=== PATIENT | male | born 1970 | race Caucasian/White ===

== ENCOUNTER 2017-02-21 17:05 | Inpatient (IN) | payer MEDICARE ==
[~2017-02-21] VITALS: Ht 172.7 cm; Wt 79.4 kg
[~2017-02-21 17:05] MED LIST: CIPR500T4 PO; [UNRECOGNIZED DRUG - CODE] IM/IV/SUBQ
[2017-02-21 17:09] VITALS: BP 150/97
[2017-02-21] MEDS ORDERED: KETOROLAC 30 MG/ML VIAL IVP ONE (17:20)
[2017-02-21] MEDS ORDERED: NACL 0.9% 1,000 ML IV ONE (17:20)
--- NOTE | 2017-02-21 17:23 | NUR ---
PT TO BED 8
[2017-02-21 17:44] LABS: BASOPHILS # (AUTO) 0.1 K/uL (0.00-0.22); EOSINOPHILS # (AUTO) 0.1 K/uL (0-0.4); WHITE BLOOD COUNT (AUTO) 4.5 K/uL (4.8-10.8)
--- NOTE | 2017-02-21 17:45 | NUR ---
Patient back from CT via wheelchair per tech.
[2017-02-21 17:54] LABS: BASOPHILS % (AUTO) 2.3 % (0.0-2.0); EOSINOPHILS % (AUTO) 1.8 % (0.0-4.0); HEMATOCRIT 45.1 % (36-52); LYMPHOCYTES # (AUTO) 0.4 K/uL (2.0-11.5); LYMPHOCYTES % (AUTO) 8.6 % (20.5-51.1); MEAN CORPUSCULAR HEMOGLOBIN 25 pg (27-31); MEAN CORPUSCULAR HGB CONC 31 g/dL (33-37); MEAN CORPUSCULAR VOLUME 81 fL (80-94); MONOCYTES # (AUTO) 0.5 K/uL (0.8-1.0); MONOCYTES % (AUTO) 10.5 % (1.7-9.3); NEUTROPHILS # (AUTO) 3.4 K/uL (1.8-7.7); NEUTROPHILS % (AUTO) 76.8 % (42.2-75.2); RED BLOOD CELL COUNT(AUTO) 5.55 MIL/uL (4.20-6.10); RED CELL DISTRIBUTION WIDTH 17.4 % (11.6-13.7)
[2017-02-21 17:55] LABS: PLATELET COUNT (AUTO) 66 K/uL (140-450)
--- NOTE | 2017-02-21 17:56 | NUR ---
46 YO MALE BIB SELF FOR BLOOD IN URINE x TODAY THIS AM. PAIN 8/10 SHARP NON-RADIATING ON PELVIC AND FLANK AREA. PT DENIES INJURY, N/V/D. ERMD NOTIFIED OF PATIENT STATUS.
[2017-02-21 18:00] LABS: ANION GAP 13.8 (8-16); CALCIUM 8.8 mg/dL (8.5-10.1); CARBON DIOXIDE 27.2 mmol/L (21-32); CREATININE 0.8 mg/dL (0.7-1.3)
[2017-02-21] MEDS ORDERED: MORPHINE SULFATE 4 MG/ML SYR IVP ONE ×3 (18:00→19:40)
[2017-02-21 18:02] LABS: INR 1.1 (0.8-1.2); PARTIAL THROMBOPLASTIN TIME 42.3 secs (22-35.6)
[2017-02-21 18:05] LABS: ALBUMIN 3.4 g/dL (3.4-5.0); TOTAL BILIRUBIN 0.7 mg/dL (0.0-1.0); TOTAL PROTEIN, SERUM 8.4 g/dL (6.4-8.2)
[2017-02-21] MEDS ORDERED: diphenhydrAMINE 50 MG/ML VIAL IVP ONE (18:15)
--- NOTE | 2017-02-21 18:15 | NUR ---
PT STATES THAT IV SITE HAS REDNESS. ERMD NOTIFED OF PATIENT STATUS.
--- NOTE | 2017-02-21 19:06 | NUR ---
Pt report given to NIMCO ORTEZ. Transfer of care at this time.
[2017-02-21] MEDS: NACL 0.9% 1,000 ML IV SCH (19:41)
[2017-02-21] MEDS ORDERED: ONDANSETRON 4 MG/2 ML VIAL IM/IVP PRN (19:45)
[2017-02-21] MEDS ORDERED: MORPHINE SULFATE 2 MG/ML SYR IVP PRN (19:45)
[2017-02-21] MEDS ORDERED: ACETAMINOPHEN 325 MG TAB PO PRN (19:45)
[2017-02-21] MEDS ORDERED: DOCUSATE SODIUM 100 MG GELCAP PO PRN (19:45)
[2017-02-21] MEDS ORDERED: HYDROcodone/APAP 7.5/325 MG 1 TAB PO PRN (19:45)
--- NOTE | 2017-02-21 19:57 | NUR ---
Patient will be admitted to care of DR DANGELO. Admited to TELE 107B. Will go to room 107B. Belongings list completed. Report to ANA. SPOKE TO ANA, PT REQUEST FACTOR VII FOR HEMOPHILIA AND REQUESTING BENADRYL WITH MORPHINE.
--- NOTE | 2017-02-21 20:03 | NUR ---
RECEIVED FROM ER PER TODD AWAKE AND ALERT. NO SOB. NO COMPLAINTS OF PAIN AT THIS TIME RT MEDICATED IN ER. ABLE TO VERBALIZE NEEDS WELL. ORIENTED TO CALL LIGHT USE AND DISCUSSED CARE PLANS WITH HIM. [place] ISLANDER SPEAKING. SKIN INTACT. DX. OF ACUTE PANCREATITIS. IVF SITE TO [facility]. ENCOURAGED TO CALL FOR ANY PAIN HE HAS OR IF HE NEEDS ANY HELP. ON TELEMETRY MONITORING.
[2017-02-21 20:05] VITALS: BP 142/89
[2017-02-21] MEDS ORDERED: LEVOFLOXACIN 250 MG/D5 PREMIX 50 ML IV SCH (20:10)
[2017-02-21] MEDS ORDERED: HYDROcodone/APAP 5/325 MG 1 TAB TAB PO PRN (20:20)
[2017-02-21 21:06] LABS: PHOSPHORUS 3.2 mg/dL (2.5-4.9); THYROID STIMULATING HORMONE 1.85 uIU/mL (0.34-3.74)
--- NOTE | 2017-02-21 21:22 | NUR ---
PT. BEING FEISTY AND SHOUTING STATING THAT HE IS HAVING REACTIONS AND SHOWING US HIS IVF SITE. HE WANTS MORE BENADRYL IVP AND MORPHINE. INFORMED HIM THAT I AM GOING TO CALL MD ON SITE TO SEE H IM. PT. GOT UPSET WHEN I CHECKED HIS IVF SITE AND TOLD HIM THAT IT IS JUST INFILTRATED AND THERE IS NO REACTION I SEE. CHARGE NURSE RE-CONFIRMED TOO THAT IT IS NOT A REACTION BUT INFILTRATION OF HIS IVF. PT. VERY UPSET AND SHOUTING HE WANTS BENADRYL NOW. INFORMED HIM THAT ER GAVE HIM BENADRYL AND MORPHINE . STILL WANTS MORE BENADRYL AND STATING HE WANTS DILAUDID. I WILL CALL MD TO TALK WITH HIM.
--- NOTE | 2017-02-21 21:33 | NUR ---
TALKED WITH MD/RESIDENT FADIA RE: PT WANTS EXTERNAL JUGULAR INSERTED AND HE REFUSED TO HAVE DEDICATED OWNER OPERATOR CONTINUE WITH INSERTION. MD STATED HE WILL TALK TO PT. AGAIN.
--- NOTE | 2017-02-21 21:55 | NUR ---
RESIDENT IN HERE TO SEE TO IT THAT IVF INSERTION WILL BE INSERTED FIRST BY CHARGE NURSE DAVIS. DRAMATIC TEACHER WAS ABLE TO INSERT EARLIER BUT HE DID NOT WANT IT CONTINUED RT HE WANTS EJ.
--- NOTE | 2017-02-21 22:17 | NUR ---
CHARGE NURSE ABLE TO INSERT TO LEFT [facility] #22 WITH GOOD BLOOD RETURN. STILL IN HIS ROOM TO TALK WITH PT.
[2017-02-21] MEDS: diphenhydrAMINE 50 MG/ML VIAL IVP PRN (22:48)
--- NOTE | 2017-02-21 23:37 | NUR ---
PT. SLEEPING AT THIS TIME RT MEDICATED REQUESTED WITH BENADRYL IVP 25 MG AND MORPHINE 2 MG IVP . WANTED BOTH MEDICATION TOGETHER RT HE SAID HE WILL HAVE REACTION AGAIN TO MORPHINE. WILL MONITOR FOR ADVERSE REACTIONS.
[2017-02-21] MEDS ORDERED: HYDROmorphone 1 MG/ML AMP IVP PRN (23:40)
--- NOTE | 2017-02-22 00:45 | NUR ---
INFORMED MD LOAIZA THAT PT. STATED HE DOES NOT WANT IVF NS RT IT WILL JUST INFILTRATE HIS IVF SITE AND THAT HE KNOWS HIS VEIN MORE. MD ALEJANDRA.
[2017-02-22] MEDS ORDERED: HYDROmorphone 1 MG/ML AMP IVP PRN (00:55)
--- NOTE | 2017-02-22 01:37 | NUR ---
SLEEPING. CALL LIGHT WITH IN REACH. NO SOB. NO URTICARIA NOTED. TELEMETRY MONITORING.
[2017-02-22 01:39] VITALS: BP 132/76
--- NOTE | 2017-02-22 02:03 | NUR ---
AWAKE AT THIS TIME AND REQUESTED FOR PAIN RELIEVER . MEDICATED REQUESTED.
--- NOTE | 2017-02-22 02:20 | NUR ---
PT. SLEEPING AT THIS TIME. CALL LIGHT WITH IN REACH.
[2017-02-22 04:00] VITALS: BP 127/75
[2017-02-22] MEDS: NACL 0.9% 1,000 ML IV SCH (04:01)
[2017-02-22] MEDS: diphenhydrAMINE 50 MG/ML VIAL IVP PRN ×2 (04:54→10:29)
--- NOTE | 2017-02-22 04:56 | NUR ---
AWAKE AT THIS TIME RT REQUESTING FOR PAIN RELIEVER AND BENADRYL IVP. INFORMED HIM THAT HE JUST HAD DILAUDID 1VP 2 HRS AGO. AGREED TO BE MEDICATED WITH BENADRYL IVP 25 MG ORDERED. MEDICATED AND THEN PT. WANTS TO HAVE DILAUDID CHANGED BACK TO MORPHINE RT HE STATES THAT MORPHINE WORKS BETTER FOR HIM. PAGED MD LOAIZA. WAITING FOR CALL BACK.
--- NOTE | 2017-02-22 05:31 | NUR ---
MD LOAIZA AWARE OF PT.S REQUEST. WILL CHANGE DOSING OF DILAUDID IVP REQUESTED INSTEAD RT MD. REFUSED TO PLACE HIM BACK ON MORPHINE IVP RT WITH DX. OF ACUTE PANCREATITIS AND PROBABLE GALLBLADDER PROBLEM. .
--- NOTE | 2017-02-22 06:11 | NUR ---
NO SCDS IN PLACE RT PT. AMBULATING WELL.
--- NOTE | 2017-02-22 06:28 | NUR ---
CALLED PHARMACY TO RE-CONFIRM IF DILAUDID IVP IS VIVIAN. MILIND OF PHARMACY STATED THAT IT IS READY TO GO.
[2017-02-22] MEDS: HYDROmorphone 1 MG/ML AMP IVP PRN ×2 (06:33→10:29)
[2017-02-22 06:36] LABS: HEMATOCRIT 37.2 % (36-52); HEMOGLOBIN 12.1 g/dL (12.0-18.0); MEAN CORPUSCULAR HEMOGLOBIN 27 pg (27-31); MEAN CORPUSCULAR HGB CONC 33 g/dL (33-37); MEAN CORPUSCULAR VOLUME 82 fL (80-94); PLATELET COUNT (AUTO) 51 K/uL (140-450); RED BLOOD CELL COUNT(AUTO) 4.55 MIL/uL (4.20-6.10); RED CELL DISTRIBUTION WIDTH 17.1 % (11.6-13.7)
[2017-02-22 07:01] LABS: MAGNESIUM 1.9 mg/dL (1.8-2.4)
[2017-02-22 07:03] LABS: ANION GAP 10.3 (8-16); CALCIUM 7.9 mg/dL (8.5-10.1); CARBON DIOXIDE 26.4 mmol/L (21-32); CREATININE 0.8 mg/dL (0.7-1.3); POTASSIUM 3.7 mmol/L (3.5-5.1)
--- NOTE | 2017-02-22 07:43 | NUR ---
ENDORSED TO THE NEXT RN FOR CONTINUITY OF CARE AWAKE AND ALERT. NO COMPLAINTS DONE.
--- NOTE | 2017-02-22 07:44 | NUR ---
RECEIVED REPORT FROM THE CAD OPERATOR NURSE AT BEDSIDE FOR CONTINUITY OF CARE. PT IS IN STABLE CONDITION. PT IS AWAKE AND ORIENTED. INTRODUCED MYSELF AND UPDATED THE BOARD. NOTED THE IV SL ON L WRIST 22G. PT REFUSED IV INFUSION BECAUSE HE IS AFRAID IF WE USE IT TOO MUCH IT WILL INFILTRATE. WANTS TO KEEP THE IV FOR MEDS ONLY. PT'S SKIN INTACT. PT HAS TATTOOS ALL OVER. PT IS AMBULATORY. PT TO HAVE GALLBLADDER US THIS MORNING. WILL BRING LATE BREAKFAST TRAY. WILL CONTINUE TO MONITOR PT.
[2017-02-22 07:49] LABS: WHITE BLOOD COUNT (AUTO) 2.4 K/uL (4.8-10.8)
[2017-02-22 07:54] LABS: BAND % (MANUAL) 5 % (0-8); EOSINOPHILS % (MANUAL) 2 % (0-4); LYMPHOCYTES % (MANUAL) 20 % (20-46); MONOCYTES % (MANUAL) 13 % (5-12); NEUTROPHILS % (MANUAL) 60 (43-65)
[2017-02-22 08:00] VITALS: BP 127/96
--- NOTE | 2017-02-22 08:45 | NUR ---
RESIDENT VASILE ROTHMAN. PT AND HAD A CONFRONTATION. YELLING. PT WOULD LIKE TO TALK TO EPIDEMIOLOGY INTERNSH[employer]. WILL PAGE.
[2017-02-22] MEDS ORDERED: LACTOBACILLUS RHAMNOSUS GG 1 EACH CAP PO SCH (09:00)
[2017-02-22] MEDS ORDERED: TAMS0.4C96 PO (09:12)
[2017-02-22 09:20] LABS: APPEARANCE,URINE SL CLOUDY (CLEAR); BILIRUBIN,URINE 1+ (NEGATIVE); BLOOD, URINE TRACE-I (NEGATIVE); COLOR,URINE ORANGE (YELLOW); LEUKOCYTE ESTERASE ,URINE NEGATIVE (NEGATIVE); NITRITE, URINE NEGATIVE (NEGATIVE); PH,URINE 5.5 (5.0-9.0); PROTEIN,URINE NEGATIVE (NEGATIVE); UGLUCOSE NEGATIVE (NEGATIVE)
[2017-02-22 09:28] LABS: AMPHETAMINE, URINE POS. ng/ml (NEG <=1000); BARBITURATE, URINE NEG. ng/ml (NEG <=200); BENZODIAZEPINE, URINE NEG. ng/mL (NEG <=200); CANNABINOID, URINE NEG. ng/mL (NEG <=50); COCAINE, URINE NEG. ng/mL (NEG <=300); OPIATE, URINE POS. ng/mL (NEG <=2000); PHENCYCLIDINE SCREEN,URINE NEG. ng/mL (NEG <=25)
[2017-02-22 09:34] LABS: ICTOTEST NEGATIVE (NEGATIVE); RBC,URINE 3-10 (FEW) /HPF (0-5)
[2017-02-22 09:35] LABS: BACTERIA,URINE 0-2 (RARE) /HPF (None Seen); WBC,URINE 0-5 (RARE) /HPF (0-5)
[2017-02-22 09:36] LABS: MUCUS,URINE 1+ /LPF (None Seen); SQUAMOUS EPITHELIAL CELL,UR 0-3 (FEW) /LPF (0-3 (FEW))
--- NOTE | 2017-02-22 10:30 | NUR ---
DR. ROBBINS SPOKE TO PT. EXPLAINED TO HIM THAT HE IS MEDICALLY CLEARED FOR D/C. NO FACTOR 8 NEEDED AT THIS TIME B/C NO BLEEDING NOTED. PT IS UPSET. DR ROBBINS WILL CALL HIS PCP AND SEE IF THEY CAN GET HIM IN FOR F/U. ADMINISTERED PAIN MEDS. PT TOLERATED WELL.
--- NOTE | 2017-02-22 10:56 | NUR ---
CM NOTE FAXED INITIAL REVIEW TO [facility] [phone] TRACKING# [id number]*, PH [phone] CM [facility] EXT [phone]
--- NOTE | 2017-02-22 11:19 | NUR ---
ECHO BEING DONE.
[2017-02-22 12:00] VITALS: BP 136/89
--- NOTE | 2017-02-22 12:00 | NUR ---
WENT OVER D/C INSTRUCTIONS WITH PT. ANSWERED ALL QUESTIONS. REMINDED PT TO F/U WITH PCP, APPT MADE. PT VERBALIZED UNDERSTANDING. REMOVED IV,CANNULA INTACT. NO BLEEDING NOTED. REMOVED TELE MONITOR. REMOVED ID BANDS. WENT OVER THE RX. PT AWARE TO POLICE DETECTIVE AND START TAKING ORDERED. WILL EAT LUNCH, GET DRESSED, GET PERSONAL BELONGINGS TOGETHER. WILL LET ME KNOW WHEN PT'S RIDE IS HERE SO I CAN ACCOMPANY HIM.
--- NOTE | 2017-02-22 13:30 | NUR ---
ACCOMPANIED PT OUT WITH HIS PERSONAL BELONGINGS. PT'S GIRLFRIEND WAITING OUTSIDE IN THE CAR. PT IN STABLE CONDITION.
--- NOTE | 2017-02-22 14:30 | NUR ---
PT LEFT HIS DISCHARGE PACKET BEHIND IN THE ROOM. RX FOR FLOMAX IN THE PACKET. CALLED PT SEVERAL TIMES, THE PHONE WOULD RING ONCE AND NO DIAL TONE. UNABLE TO LEAVE MESSAGE.
--- NOTE | 2017-02-22 18:00 | NUR ---
TRIED CALLING AGAIN. RING ONCE AND NO DIAL TONE. UNABLE TO LEAVE MESSAGE.
[2017-02-23 08:10] LABS: HEMOGLOBIN A1C 5.3 % (4.8-5.6)
[2017-02-23] MEDS ORDERED: TAMSULOSIN 0.4 MG CAP PO SCH (08:30)
[2017-02-24] MEDS ORDERED: [UNRECOGNIZED DRUG - OTHER] IM/IV/SUBQ SCH (09:00)
== END 2017-02-22 13:30 | disposition home or self-care (01) | DRG 465 ==
LOC: MED 17:05 → MTU 19:41
PROVIDERS: ADMIT Family Medicine; ATTEND Family Medicine
DX: N20.0 Calculus of kidney (principal); N17.0 Acute kidney failure with tubular necrosis; D66 Hereditary factor VIII deficiency; D69.6 Thrombocytopenia, unspecified; K74.60 Unspecified cirrhosis of liver; K76.6 Portal hypertension; N39.0 Urinary tract infection, site not specified; N13.5 Crossing vessel and stricture of ureter without hydronephrosis; Z60.2 Problems related to living alone; F41.9 Anxiety disorder, unspecified; F17.210 Nicotine dependence, cigarettes, uncomplicated; F15.10 Other stimulant abuse, uncomplicated; Z79.2 Long term (current) use of antibiotics; Z79.899 Other long term (current) drug therapy
CPT/HCPCS: 36415; 71010; 76705; 80048; 80053; 80305; 81001; 82150; 83036; 83690; 83735; 83880; 84100; 84436; 84443; 84479; 85025; 85610; 85730; 87081; 87086; 93005; 96361; 96374; 96375; 96376; 99285; J1170; J1200; J1885; J1956; J2270; J7030; Q0092